=== PATIENT | female | born 1950 | race Two or more races ===

== ENCOUNTER 2016-11-19 12:04 | Emergency (ER) | payer OTHER ==
[2016-11-19 12:09] VITALS: BP 155/79; PULSE 60; RESP 18; TEMP 99; O2SAT 98
--- NOTE | 2016-11-19 12:15 | EDPHY ---
H & P Time Seen by Provider: 11/19/16 12:11 HPI/ROS: CHIEF COMPLAINT: Right hand injury post out fall HISTORY OF PRESENT ILLNESS: 58-year-old female [id number] arrives via private vehicle complaining of acute right hand injury which was playing softball this morning and the ball bounced off for glove impacting her right hand. Complaining of pain to the 4th and 5th metacarpal. Intact skin. No paresthesia. PRIMARY CARE PROVIDER: Dr. Kiersten Mariscal PHYSICAL EXAM (Prior to examination, patient consented to physical exam, hands were washed and my usual and customary physical exam procedures followed) 1) GENERAL: Well-developed, well-nourished, alert and oriented. Appears to be in no acute distress. 2) HEAD: Normocephalic 3) HEENT: Pupils equal, round, reactive to light bilaterally. 4) LUNGS: Breathing comfortably. 5) MUSCULOSKELETAL: Tender to palpation distal 4th and 5th metacarpal. Intact skin. No tenting. Soft compartments. Normal coloration. No shortening no malrotation normal cascading of digits 6) SKIN: ecchymosis to the dorsal 4th 5th metacarpal. 7) VASCULAR: pulses and cap refill present are brisk 8) NEUROLOGIC: Radial, ulnar, median nerve function intact with no deficits appreciated on exam DIFFERENTIAL DIAGNOSIS: in no particular order including but not limited to fracture, sprain, compartment syndrome Procedure: Splint Ulnar gutter Ortho Glass splint was applied by ER radiation control technician. After application of the splint I returned and re-examined the patient. The splint was adequately immobilizing the joint and distal to the splint the patient's circulation and sensation were intact. Patient shows no signs of compartment syndrome. Was given orthopedic precautions. Smoking Status: Never smoked Constitutional: Initial Vital Signs Temperature (C) 37.2 C 11/19/16 12:05 Heart Rate 60 11/19/16 12:05 Respiratory Rate 18 11/19/16 12:05 Blood Pressure 155/79 H 11/19/16 12:05 O2 Sat (%) 98 11/19/16 12:05 O2 Delivery Mode Room Air Allergies/Adverse Reactions: No Known Allergies Allergy (Verified 11/19/16 12:05) Home Medications: Medication Instructions Recorded Albuterol [Ventolin Hfa Inhaler] 200 puffs IH 11/19/16 Aspirin [Aspirin 81mg (*)] 81 mg PO DAILY 11/19/16 GABAPENTIN 400 mg PO 11/19/16 MDM/Departure - [facility] Diagnostics: Xray of the right hand interpreted by myself: Base of 5th metacarpal fracture Imaging Results: Imaging Impressions Hand X-Ray 11/19/16 12:11 Impression: 1. Acute minimally angulated base of fifth metacarpal fracture. 2. Erosive osteoarthritis. Images reviewed by myself - Depart Disposition: Home, Routine, Self-Care Clinical Impression: Hand fracture, right Qualifiers: Encounter type: initial encounter Fracture type: closed Qualified Code(s): S62.91XA - Unspecified fracture of right wrist and hand, initial encounter for closed fracture Condition: Good Instructions: Hand Fracture (ED) Additional Instructions: Return to the ER immediately if you experience discoloration, have worsening pain, numbness, tingling, or any other symptoms that concern you. If you received x-rays in the emergency department today, be advised, that ligamentous , tendon, muscular, and other non-bony injury cannot be fully ruled out. Try to keep your affected extremity elevated above the level of your chest, and keep cold packs on the affected area, for the next 48 hours. Referrals: Namrata Colmenares MD [Medical Doctor] - 1-2 days without fail
== END 2016-11-19 13:02 | disposition home or self-care (01) ==
DX: S62.316A Displaced fracture of base of fifth metacarpal bone, right hand, initial encounter for closed fracture (principal); Z79.82 Long term (current) use of aspirin; W21.07XA Struck by softball, initial encounter; Y93.64 Activity, baseball

== ENCOUNTER → 2017-02-16 | Outpatient (CLI) | payer OTHER | LOC: FIMAGING 14:56 | PROVIDERS: ATTEND Internal Medicine | DX: M81.0 Age-related osteoporosis without current pathological fracture (principal); E03.9 Hypothyroidism, unspecified; E78.5 Hyperlipidemia, unspecified; R25.2 Cramp and spasm ==

== ENCOUNTER → 2017-06-08 | Outpatient (CLI) | payer OTHER | LOC: FIMAGING 12:21 | PROVIDERS: ATTEND Internal Medicine | DX: Z12.31 Encounter for screening mammogram for malignant neoplasm of breast (principal) | CPT/HCPCS: G0202 ==

== ENCOUNTER → 2018-08-19 | Outpatient (CLI) | payer OTHER | LOC: FIMAGING 11:01 | PROVIDERS: ATTEND Internal Medicine | DX: Z12.31 Encounter for screening mammogram for malignant neoplasm of breast (principal) ==